=== PATIENT | female | born 1970 | race Hispanic/Latino ===

== ENCOUNTER 2017-05-12 08:36 | Emergency (ER) | payer OTHER ==
[~2017-05-12] VITALS: Ht 149.9 cm; Wt 72.6 kg
[2017-05-12 11:18] VITALS: BP 140/77
== END 2017-05-12 10:00 | disposition home or self-care (01) ==
LOC: FSED 08:36
DX: R50.9 Fever, unspecified (principal); R05 Cough; J11.1 Influenza due to unidentified influenza virus with other respiratory manifestations; J45.909 Unspecified asthma, uncomplicated
CPT/HCPCS: 87400; 99283